=== PATIENT | male | born 1950 | race American Indian/Alaskan Native ===

== ENCOUNTER 2021-01-04 09:50 | Day surgery (SDC) | payer MEDICARE ==
[~2021-01-04 09:50] MED LIST: SODIUM CHLORIDE 0.9% 1000 ML 1,000 ML IV SCH
--- NOTE | 2021-01-04 10:52 | Anesthesia Consultation ---
Anesthesia Consult and Med Hx Date of service: 01/04/21 - Airway Anesthetic Teeth Evaluation: Good ROM Head & Neck: Adequate Mental/Hyoid Distance: Adequate Mallampati Class: Class III Intubation Access Assessment: Possibly Difficult - Pulmonary Exam CTA: Yes - Cardiac Exam Cardiac Exam: RRR - Pre-Operative Health Status ASA Pre-Surgery Classification: ASA3 Proposed Anesthetic Plan: MAC - Pulmonary Hx Smoking: Yes (quit ~30 yrs ago) Hx Asthma: No COPD: No Hx Sleep Apnea: Yes (uses CPAP) - Cardiovascular System Hx Hypertension: Yes Hx Coronary Artery Disease: Yes Hx Heart Attack/AMI: No Hx Angina: Yes (denies chest pain within the last month) - Central Nervous System Hx Back Pain: Yes (occasional ) - Gastrointestinal Hx Gastroesophageal Reflux Disease: Yes (well controlled) - Endocrine Hx Renal Disease: Yes (Stage III CKD) Hx Non-Insulin Dependent Diabetes: Yes (metformin only) Hx Thyroid Disease: No - Hematic Hx Anemia: No - Other Systems Hx Alcohol Use: No Hx Substance Use: No Hx Cancer: No Hx Obesity: Yes (BMI 41) - Additional Comments Anesthesia Medical History Comments: No hx of anesthetic complications.
--- NOTE | 2021-01-04 10:54 | Anesthesia Day of Surgery ---
Anesthesia Day of Surgery - Day of Surgery Patient Examined: Yes Patient H&P Reviewed: Yes Patient is NPO: Yes Beta Blockers: Yes (Patient took his bisoprolol today)
[2021-01-04] MEDS ORDERED: propofoL 200 MG/20 ML VIAL IV ONE (11:37)
--- NOTE | 2021-01-04 11:52 | Short Stay Summary ---
Short Stay Documentation Date of service: 01/04/21 Narrative H&P: The patient presents for EGD with possible dilation for dysphagia. - History Past Medical History: CAD, diabetes, other (Renal insufficiency) Past Surgical History: No surgical history Social history: no significant social history - Allergies and Medications Current Medications: Allergies No Known Allergies Allergy (Unverified 12/30/20 13:19) Home Medications Medication Instructions Recorded Confirmed Last Taken Type Amlodipine Besylate 12/30/20 12/30/20 Unknown History Ascorbic Acid [Vitamin C] 12/30/20 Unknown History Atorvastatin Calcium 12/30/20 Unknown History Bisoprolol/Hydrochlorothiazide 1 each PO 12/30/20 Unknown History [Bisoprolol-Hctz 5-6.25 mg Tab] Bumetanide [Bumex 1 mg tab] 1 mg PO 12/30/20 Unknown History Cholecalciferol Vit D3 [Vitamin D3 12/30/20 Unknown History 1,000 UNIT TAB] Hydralazine HCl 100 mg PO 12/30/20 Unknown History Latanoprost 0.005% [Xalatan 0.005%] 1 drop OP QPM 12/30/20 12/30/20 Unknown History Losartan Potassium 100 mg PO 12/30/20 Unknown History Metformin HCl [metFORMIN ER 500 mg PO 12/30/20 Unknown History Osmotic] Nitroglycerin [Nitrostat] 0.4 mg SL 12/30/20 Unknown History [place]-3S/Dha/Epa/Fish Oil [Fish 1 each PO 12/30/20 Unknown History Oil [place]-3 Softgel] Omeprazole 20 mg PO 12/30/20 Unknown History Pravastatin Sodium 12/30/20 Unknown History Terazosin HCl 2 mg PO 12/30/20 Unknown History Vitamin B12 12/30/20 Unknown History Vitamin B6 12/30/20 Unknown History Zinc [Zinc 50mg TAB] 50 mg PO 12/30/20 Unknown History gemfibroziL [Lopid] 600 mg PO BID 12/30/20 12/30/20 Unknown History Active Medications Sodium Chloride (Nacl 0.9% 1000 Ml) 1,000 mls @ 50 mls/hr IV DIRECT JOSÉ MIGUEL - Physical exam General appearance: no acute distress, well-nourished, obese Integumentary: no rash, no growths, no abnormal pigmentation HEENT: Atraumatic, PERRLA, EOMI, Mucous membr. moist/pink Lungs: Clear to auscultation, Normal air movement Breasts: deferred Heart: Regular rate, Normal S1, Normal S2, No murmurs Gastrointestinal: normoactive bowel sounds, no tenderness, no distended, no masses, no guarding, no organomegaly, obese Male Genitourinary: deferred Rectal Exam: deferred Extremities: no ischemia, pulses intact, pulses symmetrical, No edema, normal temperature, normal color, Full ROM Neurological: Normal gait, Normal speech, Strength at 5/5 X4 ext, Normal tone, Sensation intact, Cranial nerves 3-12 NL - Brief post op/procedure progress note Date of procedure: 01/04/21 Procedure: see dictation Estimated blood loss: none Pathology: none Condition: stable - Disposition Condition at discharge: Good Disposition: 01 HOME / SELF CARE / HOMELESS - Discharge Diagnoses (1) Dysphagia Status: Acute Short Stay Discharge Plan Activity: other (no driving for 24 hours) Weight Bearing Status: Full Weight Bearing Diet: regular Follow up with: BRAD LOOMIS MD [Primary Care Provider] - 7 Days
--- NOTE | 2021-01-04 11:55 | Operative Report ---
Operative Report Operative Report: Date of procedure: 01/04/2021 Procedure: Esophagogastroduodenoscopy with balloon dilation to 18 mm Preprocedure diagnosis: Dysphagia to solid foods Post procedure diagnosis: Mild peptic stricture. Endoscopist: Dr. Gaitan Anesthesia: Monitored anesthesia care per anesthesia department Medications: Propofol per anesthesia Estimated blood loss: 0 After careful discussion of the nature and purpose of the procedure as well as details the technique risks benefits and alternatives consent was obtained. The patient was placed in the left lateral decubitus position and medicated per anesthesia. The tip of the [employer] EQ 570 video scope was passed per orum under direct vision into the esophagus and advanced into the stomach and descending duodenum. The descending duodenum the duodenal bulb and pylorus were symmetrical and normal. The scope was withdrawn into the stomach and the stomach then gently insufflated with air. The antrum was normal. The stomach was further insufflated and the scope was then retroflexed and partially withdrawn. The cardia, fundus, and body of the stomach were within normal limits and easily distensible.The scope was then withdrawn in the forward position. The esophagogastric junction was at 40 cm. A mild peptic stricture was noted at the EG junction which provided no resistance to scope passage. The esophageal body was otherwise normal throughout. Dilation was performed with a [id number] 15 to 18 mm balloon over 2 to 3 minutes. The balloon was deflated and withdrawn. The site was then reinspected and minimal trauma was evident. The procedure was was well tolerated and the patient was observed in recovery. Impressions: Mild peptic stricture, status post dilation from 15 to 18 mm. Plan: Continue acid suppression therapy. Office follow-up in 6 months. Electronically signed: Mason Gaitan MD
--- NOTE | 2021-01-04 12:45 | Post Anesthesia Evaluation ---
- Post Anesthesia Evaluation Patient Participated: Yes Airway Patent: Yes Stable Respiratory Function: Yes Nausea/Vomiting: No Temp > 96.8F: Yes Pain Manageable: Yes Adequeate Hydration: Yes Anesthesia Complications: No
[2021-01-04 13:07] VITALS: BP 133/55
== END 2021-01-04 12:30 | disposition home or self-care (01) ==
LOC: GIO 09:50
PROVIDERS: ATTEND Internal Medicine Gastroenterology
DX: R13.10 Dysphagia, unspecified (principal); K27.9 Peptic ulcer, site unspecified, unspecified as acute or chronic, without hemorrhage or perforation; K31.89 Other diseases of stomach and duodenum; I25.10 Atherosclerotic heart disease of native coronary artery without angina pectoris; K21.9 Gastro-esophageal reflux disease without esophagitis; I12.9 Hypertensive chronic kidney disease with stage 1 through stage 4 chronic kidney disease, or unspecified chronic kidney disease; E11.22 Type 2 diabetes mellitus with diabetic chronic kidney disease; N18.30 Chronic kidney disease, stage 3 unspecified; E66.9 Obesity, unspecified; G47.30 Sleep apnea, unspecified; Z87.891 Personal history of nicotine dependence; Z79.84 Long term (current) use of oral hypoglycemic drugs; Z79.899 Other long term (current) drug therapy; Z98.890 Other specified postprocedural states; Z68.41 Body mass index [BMI] 40.0-44.9, adult
CPT/HCPCS: 43249; 82962; C1726; J2704; J7030